=== PATIENT | female | born 2000 | race Caucasian/White ===

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

== ENCOUNTER 2019-05-04 12:10 | Emergency (ER) | payer OTHER, BC ==
[2019-05-04] MEDS ORDERED: KETOROLAC 30 MG/ML 1 ML VIAL IM STA (12:45)
[2019-05-04] MEDS ORDERED: ACET/COD 300 MG/30 MG STARTER PACK 6 TAB BTL PO STA (12:45)
[2019-05-04] MEDS ORDERED: ORPHENADRINE 30 MG/ML 2 ML VIAL IM STA (12:46)
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
--- NOTE | 2019-05-04 13:52 | XR ---
EXAMINATION TYPE: XR chest 2V DATE OF EXAM: 05/04/2019 COMPARISON: 10/21/2016 HISTORY: Chest pain TECHNIQUE: Frontal and lateral views of the chest are obtained. FINDINGS: There is no focal air space opacity. No evidence for pneumothorax. No pleural effusion. The cardiac silhouette size is within normal limits. The osseous structures are grossly intact. IMPRESSION: 1. No acute cardiopulmonary process.
--- NOTE | 2019-05-04 13:54 | XR ---
EXAMINATION TYPE: XR clavicle LT DATE OF EXAM: 05/04/2019 CLINICAL HISTORY: pain COMPARISON: NONE TECHNIQUE: 2 views of the left clavicle are submitted. FINDINGS: There is no acute fracture/dislocation evident. The acromioclavicular and glenohumeral ravi int spaces appear within normal limits. The visualized ribs are intact and unremarkable. IMPRESSION: 1. There is no acute fracture or dislocation. ICD 10 NO FRACTURE, INITIAL EVALUATION
[2019-05-04] MEDS ORDERED: CYCLOBENZAPRINE 10MG STARTER 3 TAB BTL PO STA (14:30)
[2019-05-04 14:45] VITALS: BP 113/72; PULSE 85; RESP 17; TEMP 97.8
== END 2019-05-04 14:47 | disposition home or self-care (01) ==
LOC: EC 12:10
DX: S06.0X0A Concussion without loss of consciousness, initial encounter (principal); S46.912A Strain of unspecified muscle, fascia and tendon at shoulder and upper arm level, left arm, initial encounter; V89.2XXA Person injured in unspecified motor-vehicle accident, traffic, initial encounter; Y92.410 Unspecified street and highway as the place of occurrence of the external cause
CPT/HCPCS: 99285; 96372 ×2; 73000; 71046; 72125; 70450; J2360; J1885

== ENCOUNTER → 2019-05-09 | Outpatient (CLI) | payer BC ==
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
== END | disposition home or self-care (01) ==
LOC: RADXRMAIN 17:20
PROVIDERS: ATTEND Family Medicine
DX: M25.532 Pain in left wrist (principal); R07.9 Chest pain, unspecified; R07.81 Pleurodynia
CPT/HCPCS: 71046

== ENCOUNTER → 2019-06-01 | Outpatient (CLI) | payer OTHER ==
--- NOTE | 2019-06-02 02:31 | MR ---
EXAMINATION TYPE: MR thoracic spine wo con DATE OF EXAM: 06/01/2019 COMPARISON: HISTORY: Precordial pain Standard multiplanar, multisequence MRI departmental protocol Multiplanar, multisequence images of the thoracic spine were acquired. FINDINGS: Thoracic vertebra have normal spacing and alignment. Disc spaces show normal signal pattern. Thoracic spinal cord appears normal. There is no evidence of a cord mass. There is no thoracic spinal stenosi s. There is no thoracic paraspinal mass. Posterior elements are intact. There is no compression fract ure. I see no bony destructive process. There is small posterior disc bulge at C5-6. IMPRESSION: Negative MR scan of the thoracic spine.
== END | disposition home or self-care (01) ==
LOC: RADMRIMAIN 20:27
PROVIDERS: ATTEND Family Medicine
DX: R07.2 Precordial pain (principal)
CPT/HCPCS: 72146

== ENCOUNTER → 2020-09-06 | Outpatient (CLI) | payer OTHER, SELFPAY | END | disposition home or self-care (01) | LOC: LABWHC1 13:03 | PROVIDERS: ATTEND Family Medicine | DX: Z03.818 Encounter for observation for suspected exposure to other biological agents ruled out (principal) | CPT/HCPCS: U0003; C9803 ==

== ENCOUNTER → 2021-01-15 | Outpatient (CLI) | payer BC ==
--- NOTE | 2021-01-15 17:50 | XR ---
EXAMINATION TYPE: XR foot complete LT DATE OF EXAM: 01/15/2021 COMPARISON: NONE HISTORY: Foot pain. Blister on the foot. TECHNIQUE: 3 views FINDINGS: Metatarsals are intact. I see no fracture nor dislocation. Joint spaces are normal. IMPRESSION: Negative left foot exam.
== END | disposition home or self-care (01) ==
LOC: RADXRMAIN 17:31
PROVIDERS: ATTEND Family Medicine
DX: M79.672 Pain in left foot (principal)

== ENCOUNTER → 2022-05-19 | Outpatient (CLI) | payer BC | END | disposition home or self-care (01) | LOC: LABWHC1 13:54 | PROVIDERS: ATTEND Obstetrics & Gynecology | DX: O20.0 Threatened abortion (principal); Z3A.00 Weeks of gestation of pregnancy not specified | CPT/HCPCS: 36415; 84702; 86850; 86900; 86901 ==

== ENCOUNTER → 2022-05-26 | Outpatient (CLI) | payer BC | END | disposition home or self-care (01) | LOC: LABWHC1 07:26 | PROVIDERS: ATTEND Obstetrics & Gynecology | DX: O03.4 Incomplete spontaneous abortion without complication (principal); Z3A.00 Weeks of gestation of pregnancy not specified | CPT/HCPCS: 36415; 84702 ==

== ENCOUNTER → 2022-06-03 | Outpatient (CLI) | payer BC | END | disposition home or self-care (01) | LOC: LABWHC1 10:19 | PROVIDERS: ATTEND Obstetrics & Gynecology | DX: O03.4 Incomplete spontaneous abortion without complication (principal) | CPT/HCPCS: 36415; 84702 ==